=== PATIENT | female | born 1985 | race Caucasian/White ===

== ENCOUNTER 2017-11-01 09:41 | Emergency (ER) | payer SELFPAY, OTHER, MEDICAID | END 2017-11-01 11:46 | disposition home or self-care (01) | LOC: FTE 09:41 | DX: O9A.213 Injury, poisoning and certain other consequences of external causes complicating pregnancy, third trimester (principal); S69.91XA Unspecified injury of right wrist, hand and finger(s), initial encounter; R45.0 Nervousness; O99.89 Other specified diseases and conditions complicating pregnancy, childbirth and the puerperium; R00.0 Tachycardia, unspecified; W01.0XXA Fall on same level from slipping, tripping and stumbling without subsequent striking against object, initial encounter; Y92.9 Unspecified place or not applicable; Z3A.00 Weeks of gestation of pregnancy not specified | CPT/HCPCS: 29125; 93005; 99283-25 ==

== ENCOUNTER 2017-11-01 11:53 | Outpatient (CLI) | payer MEDICAID ==
[2017-11-01 13:57] LABS: ADD UMIC YES; UR AMORPHOUS CRYSTAL FEW /HPF (NONE SEEN); UR ASCORBIC ACID NEGATIVE (NEGATIVE); UR BACTERIA FEW /HPF (NONE SEEN); UR BILIRUBIN (Dip) NEGATIVE (NEGATIVE); UR BLOOD (Dip) NEGATIVE (NEGATIVE); UR CLARITY CLOUDY (CLEAR); UR COLOR YELLOW (YELLOW); UR GLUCOSE (Dip) NEGATIVE (NEGATIVE); UR KETONES (Dip) NEGATIVE (NEGATIVE); UR LEUKOCYTE ESTERASE (Dip) NEGATIVE Leu/ul (NEGATIVE); UR NITRITE (Dip) NEGATIVE (NEGATIVE); UR RBC 1 /HPF (0-5); UR SPECIFIC GRAVITY (Dip) 1.008 (1.003-1.030); UR SQUAMOUS EPITHELIAL CELL FEW /HPF (FEW); UR TOTAL PROTEIN (Dip) 1+ mg/dl (NEGATIVE); UR UROBILINOGEN (Dip) NEGATIVE (NEGATIVE); UR WBC 3 /HPF (0-5)
== END 2017-11-01 13:50 | disposition home or self-care (01) ==
LOC: OBT 11:53 → L-D 11:53 → OBT 13:50
DX: O9A.213 Injury, poisoning and certain other consequences of external causes complicating pregnancy, third trimester (principal); S69.91XD Unspecified injury of right wrist, hand and finger(s), subsequent encounter; Z3A.34 34 weeks gestation of pregnancy; W19.XXXD Unspecified fall, subsequent encounter
CPT/HCPCS: 76818; 81001; 87086